=== PATIENT | female | born 1985 | race Caucasian/White ===

== ENCOUNTER → 2021-03-28 15:59 | Outpatient (CLI) | payer BC, MEDICAID, SELFPAY ==
[2021-03-28 17:33] LABS: Absolute Lymphocyte Count 1.64 X10^3/uL (0.83-4.51); Absolute Neutrophil Count 6.6 X10^3/uL (2.0-7.7); Basophil# 0.05 X10^3/uL; Basophil% 0.5 % (0-1); Eosinophil# 0.25 X10^3/uL; Eosinophils% 2.7 % (0-5); Hematocrit 37.4 % (37-47); Hemoglobin 12.3 g/dL (12.0-15.0); Lymphocyte # 1.64 X10^3/ul (0.83-4.51); Lymphocyte % 17.8 % (19-41); Mean Corp Hgb Conc 32.9 g/dL (32-36); Mean Corpuscular Volume 91.2 fL (81-99); Mean Platelet Vol. 10.1 fl (6.2-12.0); Monocyte# 0.64 X10^3/uL; Monocyte% 6.9 % (0-10); NRBC Flagged by Analyzer 0 % (0-5); Neutrophil # 6.61 X10^3/uL (2.7-7.7); Neutrophil % 71.8 % (47-70); Platelet Count 369 K/mm3 (150-450); RBC Distribution Width CV 13.2 % (11.6-14.6); RBC Distribution Width SD 44.8 fl (35.1-43.9); White Blood Count 9.2 K/mm3 (4.4-11.0)
[2021-03-29 10:02] LABS: HIV - WCH Non-Reactive (Nonreactive); Hepatitis B Surface Antigen Non-Reactive (Nonreactive); Hepatitis C Antibody Non-Reactive (Nonreactive); Rubella IgG Reactive (Nonreactive); Syphilis Antibodies Non-reactive
[2021-03-31 03:07] LABS: Chlamydia By Nucleic Acid AMP Negative (Negative)
[2021-03-31 12:41] LABS: Gonococcus By Nucleic Acid AMP Negative (Negative)
== END ==
PROVIDERS: Visit Provider Obstetrics & Gynecology
DX: Z34.82 Encounter for supervision of other normal pregnancy, second trimester (principal); Z12.4 Encounter for screening for malignant neoplasm of cervix; Z11.3 Encounter for screening for infections with a predominantly sexual mode of transmission
CPT/HCPCS: 36415; 85025; 86703; 86762; 86780; 86803; 87086; 87088; 87340; 87491; 87591; 87624; 88175; G0145

== ENCOUNTER → 2021-07-03 15:51 | Outpatient (CLI) | payer BC, MEDICAID, SELFPAY ==
[2021-07-03 17:12] LABS: Glucose Challenge Gest 1H 50g 71 mg/dL (70-140)
[2021-07-03 17:13] LABS: Hemoglobin 11.2 g/dL (12.0-15.0); Mean Corpuscular Hgb 29.9 pg (27.0-32.0); Mean Corpuscular Volume 93.6 fL (81-99); Mean Platelet Vol. 10.6 fl (6.2-12.0); Platelet Count 329 K/mm3 (150-450); RBC Distribution Width CV 13.8 % (11.6-14.6); RBC Distribution Width SD 47.5 fl (35.1-43.9); Red Blood Count 3.74 M/mm3 (4.2-5.4); White Blood Count 11.8 K/mm3 (4.4-11.0)
== END ==
PROVIDERS: Visit Provider Obstetrics & Gynecology
DX: Z34.82 Encounter for supervision of other normal pregnancy, second trimester (principal)
CPT/HCPCS: 36415; 82950; 85027

== ENCOUNTER → 2021-09-25 | Outpatient (CLI) | payer BC, MEDICAID, SELFPAY | END | disposition home or self-care (01) | LOC: LABSPEC 11:34 | PROVIDERS: Visit Provider Obstetrics & Gynecology | DX: Z36.85 Encounter for antenatal screening for Streptococcus B (principal) | CPT/HCPCS: 87081 ==

== ENCOUNTER → 2021-10-09 | Outpatient (CLI) | payer BC, MEDICAID, SELFPAY | END | disposition home or self-care (01) | LOC: LABSPEC 11:31 | PROVIDERS: Visit Provider Obstetrics & Gynecology | DX: Z03.818 Encounter for observation for suspected exposure to other biological agents ruled out (principal) | CPT/HCPCS: 87635; U0005; U0003 ==

== ENCOUNTER 2021-10-16 05:10 | Inpatient (IN) | payer BC, MEDICAID, SELFPAY ==
[2021-10-16] VITALS (17 sets, daily range): BP systolic 102–132; BP diastolic 42–81; PULSE 69–92; RESP 14–18; TEMP 36.1–36.6; O2SAT 95–99; BMI 38.7
[2021-10-16] MEDS: Acetaminophen 500 MG Tablet 1000 MG PO ×3 (05:46→18:21)
[2021-10-16] MEDS: Lactated Ringers 1,000 ML 999 ML IV (05:46)
[2021-10-16 06:06] LABS: Absolute Lymphocyte Count 1.79 X10^3/uL (0.83-4.51); Basophil# 0.06 X10^3/uL; Basophil% 0.4 % (0-1); Eosinophil# 0.28 X10^3/uL; Eosinophils% 2.1 % (0-5); Hematocrit 33.2 % (37-47); Hemoglobin 11.2 g/dL (12.0-15.0); Lymphocyte # 1.79 X10^3/ul (0.83-4.51); Lymphocyte % 13.4 % (19-41); Mean Corp Hgb Conc 33.7 g/dL (32-36); Mean Corpuscular Hgb 29.2 pg (27.0-32.0); Mean Corpuscular Volume 86.7 fL (81-99); Mean Platelet Vol. 9.7 fl (6.2-12.0); Monocyte% 8.2 % (0-10); NRBC Flagged by Analyzer 0 % (0-5); Neutrophil # 10.02 X10^3/uL (2.7-7.7); Platelet Count 374 K/mm3 (150-450); RBC Distribution Width SD 43.7 fl (35.1-43.9); Red Blood Count 3.83 M/mm3 (4.2-5.4); White Blood Count 13.4 K/mm3 (4.4-11.0)
[2021-10-16] MEDS: Sodium Citrate/Citric Acid 30 ML UDC PO (06:55)
[2021-10-16] MEDS: Lactated Ringers 1,000 ML 150 ML IV (06:55)
--- NOTE | 2021-10-16 07:12 | PCM.HP.BLA ---
History and Physical Date of Admission: 10/16/21 Chief complaint: Repeat section History present illness: 36-year-old at 39 weeks and 4 days with RUIZ: 10/19/2021 by 13 wk u/s arrives for repeat section. Denies headache, visual changes, chest pain, shortness of breath, nausea vomiting. States good movement. Obstetric history: G1: SAB G2: 40-week primary section male 03/2016 G3: 39-week repeat section female 09/2017 Past medical history none Past surgical history: x2, breast augmentation Medications: vitamin Allergies: No known drug allergies Social history: Denies smoking, alcohol use, drug use Family history: Denies history DVT or PE Review of systems: Besides the above pertinent positives a full review of systems was performed and found to be negative Physical exam: Vitals: Blood pressure 123/81 pulse 92 respiratory rate 16 temp 97.8 Fahrenheit SPO2 96% on room air General: Normal-appearing no acute distress HEENT: Normocephalic atraumatic no cervical of adenopathy Cardiac/respiratory: No use of accessory muscles, nonlabored breathing Abdomen: Soft, nontender, gravid Extremities: No peripheral edema normal peripheral pulses Psych: Normal affect normal demeanor nonpressured speech Labs: White blood cell count 13.4, hemoglobin 11.2, platelets 374. Assessment plan: 36-year-old at 39 weeks and 4 days for repeat section Admit labor delivery CEFM GBS negative 2 g Ancef Anesthesia see Routine orders
[2021-10-16] MEDS: Cefazolin 2 GM in 0.9% Normal Saline 100 ML IV (07:15)
--- NOTE | 2021-10-16 08:02 | EX.PCM.OBRPT ---
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 Normal uterus, tubes, and ovaries. Mild amount of adhesions. Consent: Patient with a history of section in need of repeat section Via Pfannenstiel incision. Patient understands the risk of the procedure include but are not limited to visceral or vascular injury, prolonged hospitalization, blood loss and need for transfusion, reoperation. Patient state understanding and wished to proceed. All questions were answered and consent was signed. Procedure: Patient was brought back to the OR where spinal anesthesia was found to be adequate. 2 g Ancef were given for infection prophylaxis. Patient was prepared and draped in a supine position with leftward tilt. A Pfannenstiel incision was made at the skin with a scalpel. The incision was carried down to the fascia with a scalpel. The fascia was excised and extended laterally. The inferior aspect of the fascia was grasped with a clamp and the underlying rectus and pyramidalis muscle were dissected off sharply with Aj scissors. In a similar fashion the superior aspect of the fascia was grasped with a clamp and the underlying rectus muscle was dissected off sharply. Rectus muscle was dissected at the midline down to the level of the pubic symphysis. Preperitoneal fatty tissue was noted and peritoneum was entered bluntly. Peritoneum was extended superiorly and inferiorly with good visualization of bladder. Bladder blade was inserted and vesicouterine peritoneum was identified. Low transverse hysterotomy was made. Hand was placed in the hysterotomy and gentle fundal pressure was applied once the bladder blade was removed and the head was brought into the hysterotomy. Head and shoulders were delivered with ease. Cord was cut and clamped. Baby was handed off to nursing. Placenta was delivered via cord traction and fundal massage. IV oxytocin was initiated to facilitate uterine contractions. Uterus was exteriorized and wiped out with dry laparotomy sponge in order to remove remaining placental membranes. Uterus was closed in a continuous running fashion. Second layer was performed. Good hemostasis was noted. Uterus was placed back into the abdominal cavity and reinspected and good hemostasis was noted. Rectus muscle was reapproximated with horizontal mattress sutures. Fascia was closed in a continuous running fashion with PDS. Skin was closed in a subcuticular fashion. All counts were correct x2. Patient tolerated the procedure well and was brought to recovery in stable condition.
[2021-10-16] MEDS: Oxytocin 30 units/NS 500 ml 30 UNITS/500 ML IV.SOLN 167 UNITS IV (08:20)
[2021-10-16] MEDS: Ketorolac 30 MG/ML Syringe IV ×3 (09:09→21:00)
[2021-10-16] MEDS: Lactated Ringers 1,000 ML 100 ML IV (12:00)
[2021-10-16] MEDS: 0.9% Saline Lock 10 ML Syringe IV ×2 (15:14→21:01)
[2021-10-16] MEDS: Ondansetron 4 MG/2 ML Vial IV (15:14)
--- NOTE | 2021-10-16 18:00 | NURSING ---
Delayed getting up due to pt nausea. pt was medicated with zofran and wanted to eat before getting up the first time.
[2021-10-16] MEDS: Sertraline 50 MG Tablet PO (18:21)
[2021-10-16] MEDS: Enoxaparin 40 MG/0.4 ML Syringe SC (21:00)
[2021-10-17] MEDS: Acetaminophen 500 MG Tablet 1000 MG PO ×3 (00:14→13:31)
[2021-10-17 00:16] VITALS: BP 128/63; PULSE 71; RESP 18; TEMP 36.3; O2SAT 99
[2021-10-17] MEDS: Ketorolac 30 MG/ML Syringe IV (03:03)
[2021-10-17] MEDS: 0.9% Saline Lock 10 ML Syringe IV (03:03)
[2021-10-17 04:50] VITALS: BP 109/57; PULSE 77; RESP 16; TEMP 36.3; O2SAT 94
--- NOTE | 2021-10-17 05:48 | PCM.PN.OB ---
Subjective Subjective Post op day 1. Breast feeding going well. Lochia minimal. Pain controlled. Objective Data Objective Data Vital Signs: Vital Signs Temp Pulse Resp BP Pulse Ox 97.4 F L 77 16 109/57 L 94 10/17/21 04:50 10/17/21 04:50 10/17/21 04:50 10/17/21 04:50 10/17/21 04:50 Oxygen Delivery Method Room Air Weight: 102.512 kg Body Mass Index (BMI) 38.7 Intake & Output: Intake and Output for Last 24 Hours 10/15/21 10/16/21 10/17/21 23:59 23:59 23:59 Intake Total 3163.33 / 3163.33 Output Total 1300 / 1300 Balance 1863.33 / 1863.33 Lab / Micro Data Result Diagrams: 10/16/21 05:25 Labs: Laboratory Results - last 24 hr 10/16/21 05:25: WBC 13.4 H, RBC 3.83 L, Hgb 11.2 L, Hct 33.2 L, MCV 86.7, MCH 29.2, MCHC 33.7, RDW Std Deviation 43.7, RDW Coeff of Cristhian 14.0, Plt Count 374, MPV 9.7, Immature Gran % (Auto) 0.900, Neut % (Auto) 75.0 H, Lymph % (Auto) 13.4 L, [place] % (Auto) 8.2, Eos % (Auto) 2.1, Baso % (Auto) 0.4, Absolute Neuts (auto) 10.0 H, Absolute Lymphs (auto) 1.79, Nucleated RBC % 0 10/16/21 05:25: Blood Type A POSITIVE, Antibody Screen NEGATIVE Physical Exam Const alert, oriented x3 and no apparent distress HEENT normocephalic Head and Scalp: atraumatic Neck full ROM Resp normal respiratory effort Cardio regular rate GI normal to inspection, nondistended, normoactive bowel sounds GI Narrative: Uterus 2 cm below umbilicus. dressing c/d Back/Spine normal ROM Extremity normal to inspection Extremity Narrative: Minimal pedal edema Neuro no focal motor deficits and no sensory deficits noted Psych mental status grossly normal and affect normal Assessment & Plan (1) Delivery by section: PLAN: Post op day 1. CBC pending. Breast feeding. Home today. 2 week post op visit. (2) Other acute postprocedural pain:
--- NOTE | 2021-10-17 05:49 | PCM.DC ---
Discharge Instructions Diet Discharge Diet: No restrictions Activity Discharge Activity: Return to Normal Activity and May Shower May resume sexual activity in: 4-6 weeks Weight Bearing Status: Weight bearing as tolerated Lifting Restrictions: No greater than 25 pounds Dressing / Incision Call your doctor if your incision/area has: Continuous Slow Oozing, Increased Pain/ Swelling and Increased Redness Call your doctor if you observe: Fever of 101 or Higher, Change in Color, Inability to urinate, Using more than 1 pad per hour, Shortness of breath, Dizziness, Swelling in the ankles, Chest pain and Calf discomfort Remove Dressing in: 1 week Cleanse incision/area with: Soap & Water Follow Up Care Please Follow Up With: Ayan Wong MD When: 2-week post operative appointment and 6-week visit Test Results: Test results from this visit will be discussed in further detail at your follow-up appointment, if applicable. Discharge Plan Admission Admit Date/Time: 10/16/21 05:10 Primary Reason for Your Visit: section Attending Provider: Ayan Wong Primary Care Provider: Care Physician,No Primary Discharge Orders/Prescriptions Prescriptions: New oxycodone 5 mg tablet 5 mg PO Q6H PRN (Reason: pain (scale score 7-10)) 5 Days Qty: 20 RF: 0 Continued 15-khoc-jylfke 6-dha 30 mg iron-1mg -200 mg Capsule 1 cap PO DAILY RF: 0 sertraline 50 mg tablet 50 mg PO DAILY RF: 0 Referrals / Follow Up: Care Physician,No Primary [Primary Care Provider] - Disposition Disposition (needs filled in before D/C Order can be placed): Home, Self Care
[2021-10-17 08:30] VITALS: BP 112/50; PULSE 76; RESP 16; TEMP 36.4
[2021-10-17 09:16] LABS: Hematocrit 32.1 % (37-47); Hemoglobin 10.5 g/dL (12.0-15.0); Mean Corp Hgb Conc 32.7 g/dL (32-36); Mean Corpuscular Hgb 29.2 pg (27.0-32.0); Mean Corpuscular Volume 89.2 fL (81-99); Mean Platelet Vol. 9.6 fl (6.2-12.0); Platelet Count 325 K/mm3 (150-450); RBC Distribution Width CV 14.1 % (11.6-14.6); RBC Distribution Width SD 45.9 fl (35.1-43.9); White Blood Count 11.9 K/mm3 (4.4-11.0)
[2021-10-17] MEDS: Ibuprofen 600 MG Tablet PO (09:47)
[2021-10-17] MEDS: Senna/Docusate Sodium 1 Tablet PO (09:49)
--- NOTE | 2021-10-17 13:16 | NURSING ---
1100 Pt noted to have a very flat affect, doesn't smile, seems appropiate with the baby, tearful at times. pHq9 completed and discussed with Beverly.
[2021-10-17] MEDS: oxyCODONE 5 MG Tablet PO (13:39)
[2021-10-17 14:02] VITALS: BP 110/52; PULSE 78; RESP 16; TEMP 36.4
--- NOTE | 2021-10-17 14:41 | CASEMGMT ---
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 [place] suicide risk assessment completed as follow-up to PHQ-9 responses. Risk assessment as follows: SUICIDAL IDEATION 1. Wish to be Have you wished you were or wished you could go to sleep and not wake up? Yes Lifetime: Time He/She [place] Most Suicidal: Patient reports she cannot recall a specific time outside of the last month. Past 1 month: Argued with , who recently informed patient that no longer wants to be together. Patient reports thoughts of not wanting to live, that it would be easier not to be around. Please Describe if yes: 2. Non-Specific Active Suicidal Thoughts Have you actually had any thoughts of killing yourself? Yes Lifetime: Time He/She [place] Most Suicidal: Within the last month, reports cannot recall anything specific outside of the last month. Past 1 month: Yes, after argument with . Please Describe if yes: Reports thoughts that it would be easy if would at delivery, desire for something to go wrong during delivery. 3. Active Suicidal Ideation with Any Methods (Not Plan) without Intent to Act Have you been thinking about how you might do this? Yes Lifetime: Time He/She [place] Most Suicidal: Within the last month Past 1 month: After argument with . Please Describe if yes: Thought of hanging self. 4. Active Suicidal Ideation with Some Intent to Act, without Specific Plan Have you had these thoughts and had some intention of acting on them? Patient denies. Lifetime: Time He/She [place] Most Suicidal: No Past 1 month: No 5. Active Suicidal Ideation with Specific Plan and Intent Have you started to work out or worked out the details of how to kill yourself? Do you intend to carry out this plan? Patient denies. Lifetime: Time He/She [place] Most Suicidal: No Past 1 month: No INTENSITY OF IDEATION Lifetime - Most Severe Ideation: 3 Recent - Most Severe Ideation: 3 Frequency How many times have you had these thoughts? Lifetime: 1 - less than once a week. Recent, in last month: 1 - Less than once a week Duration When you have the thoughts how long do they last? Lifetime: 1 - Within the last month, fleeting, less than a minute. Recent: 1 - Within the last month, fleeting, less than a minute. Controllability Could/can you stop thinking about killing yourself or wanting to if you want to? Lifetime: 1 -Yes, easily able to control thoughts. Recent: 1 - Yes, easily able to control thoughts. Deterrents Are there things - anyone or anything (e.g., family, mormon, pain of ) - that stopped you from wanting to or acting on thoughts of committing suicide? Children and not wanting to leave them. Denies intent or desire to harm anyone, including children. Lifetime: 1 -Reports deterrents definitely stopped thoughts. Recent: 1 - Reports deterrents definitely stopped thoughts. Reasons for Ideation What sort of reasons did you have for thinking about wanting to or killing yourself? Was it to end the pain or stop the way you were feeling (in other words you couldn?t go on living with this pain or how you were feeling) or was it to get attention, revenge or a reaction from others? Or both? Lifetime: 4 - just did not want to be around anymore, felt overwhelmed, waned emotional pain to stop. Recent: 4 - just did not want to be around anymore, felt overwhelmed, waned emotional pain to stop. ? 2008 [employer] [id number] Recent - Clinical (Version 12/01/08) Page 1 of 2___ SUICIDAL BEHAVIOR Actual attempt: Lifetime: No; Past 3 months: No Actual Attempt: Denies any past attempts, actions to harm self, or doing anything dangerous in which could have . Denies any history of nonsuicidal self-injurious behavior in lifetime or within the last 3 months. Interrupted Attempt: Has there been a time when you started to do something to end your life but someone or something stopped you before you did anything? No, nothing in lifetime or within the last 3 months. Total # of Interrupted is reported as : 0 Aborted or Self-Interrupted Attempt: Has there been a time when you started to do something to try to end your life, but you stopped yourself before you did anything? None, denies. Number self-interrupted attempts: 0 Preparatory Acts or Behavior: Have you taken any steps towards making a suicide attempt or preparing to kill yourself (such as collecting pills, getting a gun, giving valuables away or writing a suicide note)? Denies Lethality History: No prior attempts endorsed or reported. Potential Lethality: No history of attempts Summary: Met with patient as a follow-up to PHQ-9 depression screen which is routinely completed with women in the labor and delivery unit. PHQ-9 score was 25 out of 27 ranging in the severe range of depression. Treatment recommendations would be the initiation of medication, therapy, and expedited referral to mental health. Patient endorses situational stress contributing to the patient having thoughts that would be better off or harming self in some way. Reports within the last month the patient's who reportedly conveyed to the patient that he is unhappy in the marriage and may not love the patient anymore. Patient endorses history of marital stress during with their second child which was in 2017 with follow-up marital counseling. Patient reports feeling overwhelmed over this last month thinking about how she will be a single mother, caring for 3 children at home. Struggling with fears about the future and also still having feelings for her . Additional stress during this includes the patient's father and grandmother both dying at the beginning of this , and the patient's older son recently been diagnosed with ADHD. Patient reports she has been unable to take prescribed ADHD medication during this (stopped after the first trimester) and feels this has been a contributor to stress at home. Reports early THC use to help sleep as well as to deal with emotions related to her . Patient reports thoughts of dying occurred after arguing with her over the last month, thinking that would just like to during delivery, and also had a fleeting thoughts of wanting to hang herself. Reports the ideation and identified method as fleeting and easily controlled. Reported that after having these thoughts, the patient felt very mad at self, as would not want to hurt her children or leave her children without their mother. Despite uncertainty regarding the future of her marriage, patient denies any thoughts of dying or desire to since coming into the hospital or since delivery of the baby on 10/16/2021. Patient clearly states that her children are a reason to continue living, and that does not want to leave her children. Patient acknowledges that she may benefit from reestablishing on her ADHD medication and potentially having an adjustment of her antidepressant medication of Zoloft. States she has been adherent to the prescribed Zoloft since she started taking this. Reports history of taking Prozac, and reports belief that Prozac and Zoloft worked equally as well. Addressed with the patient access to lethal means, and patient endorses there are guns in the home, currently located in a gun safe. Patient agreeable to complete safety plan and to include on the conversation regarding the safety plan. Denies stockpiles of medications: or access to other lethal means for suicide. Patient cooperative with social work visit. Eye contact normal. Affect constricted. Mood sad and anxious. Tearful for most of social work visit. Thought process intact. No evidenced of psychosis. Motor activity and speech within normal limits. Verbally contracts for safety. Denies any active thoughts, planning, intent for suicide or homicide. Strengths: No past attempts, no specific planning and reported thoughts were fleeting with reported ability to control thoughts; able to identify outside emotional support from sister Ceci and a female friend named Tiara. Clearly states that does not want to hurt her children or to leave the children; desire to be a mother and has always valued being a mother. Although overwhelmed by the idea of being a single mother and where to start with this, is future oriented and already thinking about what would do for employment in order to support her children. States willingness to adhere to medication regimen, have medications adjusted if deemed necessary, follow up with counseling. Agrees to supportive services for parenting such as [employer]. Already established with local [facility] for psychiatry and counseling, reporting appointment with counselor on 10/23/2021 and a psychiatrist on 11/01/2021. Interventions: Release of information to [facility] signed. Obtained appointment with psychiatrist Dr. Gomez at [facility], via telehealth, 10.18.[address] Chance Louise, HOSPICE EXECUTIVE DIRECTOR, who will have office do phone out reach on 10/20/2021. Completed crisis safety plan with the patient. present, signed a safety plan as well, and verbally reported intent to remove guns to his father's home and in the interim ensure that lock for gun safely secured. Plan: Patient will discharge home with . Patient sister is in town for the next 2 days to provide support and assistance at home. Mental health follow-up scheduled for tomorrow 10/18/2021, and patient verbally agrees to keep this appointment. Crisis safety plan completed. Patient verbally contracted with this keno writer / runner that if she has thoughts of suicide again, even fleeting will reach out to identified support system. 24-hour crisis line also provided to the patient who expresses understanding of plan. -GIANNA Frazier, SHELL SIEVE OPERATOR *This note was generated with Regal[employer] dictation software. It may contain incorrect words, spelling, and punctuation that were not noted in review of the chart prior to signing*
--- NOTE | 2021-10-17 15:59 | CASEMGMT ---
Social Work Assessment Labor and Delivery Unit Patient Address: [address] [place], [place] [id number] Phone number: [phone] Date of Referral: 10/16/2021; 10/17/2021 Time of Referral: 0545; 1116 Referred By: Dr. Ayan Wong Date of Intervention: 10/17/2021 Reason for Referral: 1. Maternal history of depression and anxiety. 2. PHQ-9 score of 25 following in the severe range of depression (see prior social work note for details regarding this follow-up). History obtained from: Medical records and mother of baby (MOB) Brigette Pang Household composition: MOB, father of baby (FOB), and older children. Denies any safety concerns with housing situation. Patient's parent/guardian status: MANDO is a 36-year-old female, to the FOB Jared Pang for the last 13 years. MOB denies any history of physical, sexual, or verbal abuse but does endorse emotional abuse reporting that the FOB has a history of lying and manipulating conversations. MANDO reports marital discord at this time, with uncertainty about the future of their marriage. MOB and FOB now have 3 children together. Minor children include: Herrera Pang (born 03/2016), Ivelisse Pang (born 09/2017), and baby boy Jose Pang, born 10/16/2021. Medical History: MANDO is 4, para 2 now 3 after delivering Jose. care started at 13 weeks gestation and regular thereafter. Delivery via repeat at 39 weeks. large for gestational age weighing 9 pounds 5 ounces. Apgars 9 and 9. Educational Status: 2-year associates degree. No reported concerns with reading, writing, or learning comprehension. Financial Status: MANDO stays at home and the FOB is employed outside of the home working for a union doing [employer] work. Supplies: MOB reports to have all necessary supplies for the car seat and safe sleep space in the form of bassinet. Reports to have all other necessary supplies. Is planning to breast-feed. Childcare/Caregiver(s): MOB is the primary caregiver of the children. Transportation: Denies any issues with transportation. Programs/Agencies Involved: Reports job and family services for medical and food assistance. Reports to be active with WIC. Active with community action program for Headstart services for Ivelisse. Active with [facility] for psychiatry and counseling. Children Services/Legal Issues: No endorsed legal history. Denies any history of children services involvement. Behavioral Health Issues: Mental Health History: MOB endorses history of depression and anxiety prior to having children. Reports has been on medications in and out of counseling. Reports starting antidepressant after Ivelisse was born, so possibly some depression at that time although situationally there was marital issues at that point. Reports was diagnosed with ADHD 10 years ago. Denies any history of bipolar disorder. Her depression screening completed during this admission, MOB depression is in the severe range. Please refer to prior social work note done during this admission for details. Substance Use History: MOB reports prescribed Adderall that took during the first trimester. Reports medications are prescribed 3 months at a time and that upon realization of did let the psychiatrist know, but never heard back from the doctor. Reports when it was time to refill the medication the doctor then told the MOB that the MOB should not be taking this. MOB reports she quit cold turkey. MOB endorses some marijuana use during this with possible use in the second trimester. MOB vague about last use. Reports did use to help sleep as well as to deal with issues with her . Denies any substance use such as heroin, meth, cocaine. Denies alcohol during . Denies history of any alcohol use issues. Family History: MOB son Herrera was just recently diagnosed with ADHD and started on medication. MOB reports the FOB has a history of depression, with the MOB believing that FOB to have untreated bipolar disorder. FOB does reportedly drink alcohol and possible THC use history. Drug Screens: No maternal drug screens completed. Meconium drug screen pending for the baby. Family/Social Stressors: Marital stress. Oldest son recently diagnosed with ADHD. MOB grandmother and father both dying at the beginning of this . MOB reporting stress regarding concern about future and how she will manage being a single mother to 3 children should the marriage not work out, which MOB will be believes is a possibility. Support Systems: MOB reports to have a sister who lives out of state, but whom the MOB can talk to for emotional support. Reports to have a good female friend by the name of Tiara who is another emotional support. Tiara is also another potential support for practical help should MOB need it. FOB is reported as an intermittent help at home with the children. MOB also reports that she can go to her mother's home for support. Depression/Shaken Baby/Safe Sleeping reviewed mood and anxiety disorders, risk factor, and importance of following up with established mental health providers. Reviewed shaken baby prevention and safe sleeping. ASSESSMENT: Met with the MOB alone, introducing to self and social work role. Completed this assessment in conjunction with follow-up to the PHQ-9 screening/suicide risk assessment. MOB cooperative with this commercial insurance underwriter, talkative, eye contact within normal limits. Mood sad and anxious. Affect constricted. Cried for most of the assessment. Thought process logical. Speech and motor activity within normal limits. MOB cooperative with seeking out sooner mental health support than was already established, and expressed appreciation for this commercial insurance underwriter assisting with this. MOB had established appointments with psychiatry on 11/01/2021 and then with a counselor on 10/23/21. MOB also agreeable to an early Headstart referral for the baby. Declined a referral to the nurse visit program through the [facility]. MOB reports to have necessary supplies for the . Report support from the is limited. Discussed with the MOB staying at the hospital another night for some added support and rest. MOB reports desire to go home today, due to the MOB sister being in town through and wanting to be at home with support from her sister. MOB did disclose the FOB having a history of drinking and possible THC use. Explored whether THC was present for the MOB during this . MOB indicated this possibly was. Educated the MOB to the Theresa Act, and mandate to report substance exposed infants in utero. Educated to meconium testing and that this could show into the second trimester. MOB reports it was possible use into the second trimester but uncertain. Let MOB know that children services may need to follow-up with the family, but that typically the goals are to try to keep families together and to ensure necessary supports are in place to provide a safe environment for the children. Educated MOB that breast-feeding and THC use is not recommended. MOB voiced understanding. Allowed MOB opportunity to ask questions. Provided much emotional support and encouragement to MOB this date. Safe Plan of Care for related to substance use: No reported use of substances at this time. Reviewed with the MOB recommendation not to use any THC, especially while breast-feeding. Reviewed importance of children not being exposed to substances, not having access to substances, and that should any substances be used by the parents with therapy if sober person to help care for the children. MOB does plan to continue with psychiatry and counseling. PLAN: MOB and infant will discharge home. MOB verbally contracts for safety of self and denies any active intent or desire for self-harm. (Refer to prior social work assessment for further details). MOB verbally agrees to attend mental health follow-ups that are established. Appointments are set for 10/18/2021 at 1130, 10/23/2021, and 11/01/21 at [facility] in [place]. Early Headstart referral being completed. Plan to call [facility] children services related to substance exposed in utero, and other dependency risk factors for this family. MOB is aware of potential children services follow-up. No other services requested or indicated. -LIA Frazier, LIZETH *This note was generated with Lagoa dictation software. It may contain incorrect words, spelling, and punctuation that were not noted in review of the chart prior to signing*
--- NOTE | 2021-10-17 16:30 | CASEMGMT ---
Addendum entered and electronically signed by Beverly Maldonado 10/17/21 16:36: For clarification [facility]'s fax is [phone]. -anusha Original Note: Social work Labor and delivery unit Early Headstart referral form signed by the mother of baby. Faxed referral to confirmed fax [phone] at [facility]. When this principal technical writer made the mother of baby's mental health follow-up for 10/18/2021, request was placed for the crisis safety plan/social work note related to safety plan be faxed to the [facility]'s office for continuity of care. Reviewed this request with the mother of baby, who verbally agreed and also signed a release of information for requested information to be faxed. Faxed [phone] crisis safety plan, copy of social work's suicide risk assessment, and signed release of information to confirm to fax at [facility]. Plan: See prior social work assessment for further details. Outstanding intervention needed will be to call [facility] children services related to substance exposed infant in utero opiate dependency risk factors for the family. -Beverly Maldonado, GIANNA, INCIDENT RESPONSE CONSULTANT *This note was generated with Array Stormation software. It may contain incorrect words, spelling, and punctuation that were not noted in review of the chart prior to signing*
--- NOTE | 2021-10-19 13:19 | CASEMGMT ---
Social Work Labor and Delivery Called [facility], , and spoke with Cathy Dudley in the intake department. Referral for substance exposed in utero, as well as other dependency risk factors. Brief maternal and histories provided. [facility] would like to be called if the meconium comes back with any substances. No other services requested or indicated, other than monitoring for meconium results. MOB would like to be notified of results, as per conversation with this telegraphic typewriter operator during the social work assessment. -GIANNA Frazier, FOREST FIRE SPECIALIST SUPERVISOR
--- NOTE | 2021-11-28 13:34 | CASEMGMT ---
Social Work Labor Delivery Unit Meconium drug screen results for baby are back and positive for marijuana. Level is 183 ng/g. Called in [facility] services at [phone] and spoke with Bekah Dudley in the intake department. Updated results reported. Called mother of baby Brigette Pang at [phone] and updated. Mother of baby had requested this promotion writer call when results were back. Answered mother of baby's questions as able. Mother of baby indicated that her own mother on 11/26/2021. It was an unexpected . Offered referrals and information for counseling, which the mother of baby declined. MOB expressed appreciation for phone call and updated information. Emotional support/condolences offered. No other services requested or indicated. -GIANNA Frazier, VAMP MAKER *This note was generated with M [employer]ared Lasersation software. It may contain incorrect words, spelling, and punctuation that were not noted in review of the chart prior to signing*
== END 2021-10-17 15:00 | disposition home or self-care (01) | DRG 788 ==
PROVIDERS: Admitting Provider Obstetrics & Gynecology; Visit Provider Obstetrics & Gynecology
PROC: 10D00Z1 Extraction of Products of Conception, Low, Open Approach (ICD-10-PCS; CPT 59514; principal; 2021-10-16 07:15)
DX: O34.211 Maternal care for low transverse scar from previous cesarean delivery (principal); N85.8 Other specified noninflammatory disorders of uterus; Z3A.39 39 weeks gestation of pregnancy; Z37.0 Single live birth
CPT/HCPCS: 36415; 85025; 85027; 86850; 86900; 86901; 99218; J7120; A4216; G0378; J2405